=== PATIENT | male | born 1950 | race Caucasian/White ===

== ENCOUNTER → 2017-08-01 | Outpatient (CLI) | payer MEDICARE ==
[~2017-08-01] MED LIST: AMBIEN10 M1 GT; CEFTIN500 MG PO; DELTASONE10 MG PO; KEFLEX500 MG PO; LEXAPRO5 MG PO; LOTENSIN20 M1 PO; NOHOMEMEDS; PROTONIX40 MG PO; ZITHROMAX500 MG PO; ZOLOFT100 M1 PO; Zoloft PO
== END | disposition home or self-care (01) ==
LOC: CDC 08:11
DX: Z01.810 Encounter for preprocedural cardiovascular examination (principal); I44.0 Atrioventricular block, first degree
CPT/HCPCS: 93000